=== PATIENT | female | born 1985 | race Caucasian/White ===

== ENCOUNTER 2018-11-23 04:59 | Emergency (ER) | payer BC ==
[2018-11-23] MEDS ORDERED: SODIUM CHLORIDE 0.9% 1,000 ML IV STA (05:21)
--- NOTE | 2018-11-23 05:25 | ED ---
General Adult HPI - General Chief complaint: Chest Pain Stated complaint: Chest Pain Time Seen by Provider: 11/23/18 05:08 Source: patient Mode of arrival: wheelchair - History of Present Illness Initial comments: Dictation was produced using [employer] dictation software. please excuse any grammatical, word or spelling errors. Chief Complaint: 33-year-old female presents with chief complaint of chest pain episode and paresthesias to the right hand History of Present Illness: 33-year-old female she denies any significant comorbidities presents today with chief complaint of chest pain and paresthesias to the hand. Patient reports that she awoken up from sleep with some substernal chest pain. She states that the pain was sharp. Around the time of her onset of symptoms she had tingling that went down the right upper extremity. She states that her symptoms resolved. She does note that she had some paresthesias to her entire right hand. Denies any motor weakness. She states she had a second long episode of some tightness in the left throat. Patient has ever having had symptoms like this in the past. 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 She drinks a lot of caffeine. Patient takes medication for appetite suppression. No other medications. Denies any surgeries.Family history of cardiac disease or sudden for the age of 44. Patient states that her pain symptoms resolved. Most of her symptoms resolved except for some strange sensation in her hand. She denies it as numbness. She states it just simply feels strange. The ROS documented in this emergency department record has been reviewed and confirmed by me. Those systems with pertinent positive or negative responses have been documented in the HPI. All other systems are other negative and/or noncontributory. PHYSICAL EXAM: General Impression: Alert and oriented x3, not in acute distress HEENT: Normocephalic atraumatic, extra-ocular movements intact, pupils equal and reactive to light bilaterally, mucous membranes moist. Cardiovascular: Heart regular rate and rhythm, S1&S2 audible, no murmurs, rubs or gallops Chest: Lungs clear to auscultation bilaterally, no rhonchi, no wheeze, no rales Abdomen: Bowel sounds present, abdomen soft, non-tender, non-distended, no organomegaly Musculoskeletal: Pulses present and equal in all extremities, no peripheral edema Motor: no focal deficits noted Neurological: CN II-XII grossly intact, no focal motor or sensory deficits noted Skin: Intact with no visualized rashes Psych: Normal affect and mood ED course: Female presents with atypical chest pain and peripheral neuropathy as upon arrival shows heart rate of 101, rest of vital signs within acceptable limits. EKGs benign. Her symptoms may be related to excessive caffeine intake. Laboratory evaluation obtained. CBC unremarkable. Metabolic panel is negative. Renal markers are unremarkable. Electrolytes derangement. We'll TSH. Chest x-ray is nonacute. Patient monitored at bedside with no changes seen on potline monitor. She was reevaluated at bedside and found to be in stable medical condition. She states her symptoms are much improved. Patient counseled on caffeine intake. Sightly likely that patient's symptoms are secondary to excessive caffeine use. She is advised follow-up with PCP. Consult on pro ducing her Pain congestion to reduce symptoms. Return parameters discussed. Patient clear for discharge. EKG interpretation: Ventricular rate anterior, normal sinus rhythm,. 1:30, care is 80, QTc 472. No WA prolongation, no QTC prolongation, no ST or T-wave changes noted. Overall, this EKG is unremarkable - Related Data Allergies Allergy/AdvReac Type Severity Reaction Status Date / Time No Known Allergies Allergy Verified 11/23/18 05:06 Review of Systems ROS Statement: Those systems with pertinent positive or pertinent negative responses have been documented in the HPI. ROS Other: All systems not noted in ROS Statement are negative. Past Medical History Past Medical History: No Reported History History of Any Multi-Drug Resistant Organisms: None Reported Past Surgical History: Cholecystectomy Smoking Status: Never smoker Past Alcohol Use History: None Reported, Occasional Past Drug Use History: None Reported Course Vital Signs 11/23/18 05:01 Temperature 97.4 F L Pulse Rate 101 H Respiratory 18 Rate Blood Pressure 150/88 O2 Sat by Pulse 100 Oximetry Medical Decision Making - Lab Data Result diagrams: 11/23/18 05:31 11/23/18 05:31 Lab Results 11/23/18 11/23/18 Range/Units 05:31 05:31 WBC 10.5 (3.8-10.6) k/uL RBC 4.76 (3.80-5.40) m/uL Hgb 14.7 (11.4-16.0) gm/dL Hct 44.0 (34.0-46.0) % MCV 92.4 (80.0-100.0) fL MCH 31.0 (25.0-35.0) pg MCHC 33.5 (31.0-37.0) g/dL RDW 13.0 (11.5-15.5) % Plt Count 333 (150-450) k/uL Neutrophils % 66 % Lymphocytes % 25 % Monocytes % 4 % Eosinophils % 4 % Basophils % 1 % Neutrophils # 6.9 (1.3-7.7) k/uL Lymphocytes # 2.6 (1.0-4.8) k/uL Monocytes # 0.4 (0-1.0) k/uL Eosinophils # 0.4 (0-0.7) k/uL Basophils # 0.1 (0-0.2) k/uL Sodium 139 (137-145) mmol/L Potassium 3.7 (3.5-5.1) mmol/L Chloride 104 (98-107) mmol/L Carbon Dioxide 23 (22-30) mmol/L Anion Gap 12 mmol/L BUN 10 (7-17) mg/dL Creatinine 0.77 (0.52-1.04) mg/dL Est GFR (CKD-EPI)AfAm >90 (>60 ml/min/1.73 sqM) Est GFR (CKD-EPI)NonAf >90 (>60 ml/min/1.73 sqM) Glucose 99 (74-99) mg/dL Calcium 9.6 (8.4-10.2) mg/dL Magnesium 2.1 (1.6-2.3) mg/dL Total Bilirubin 0.6 (0.2-1.3) mg/dL AST 24 (14-36) U/L ALT 45 (9-52) U/L Alkaline Phosphatase 86 (38-126) U/L Total Protein 7.4 (6.3-8.2) g/dL Albumin 4.5 (3.5-5.0) g/dL TSH 3.800 (0.465-4.680) mIU/L Disposition Clinical Impression: Paresthesia Disposition: HOME SELF-CARE Condition: Good Instructions (If sedation given, give patient instructions): Chest Pain (ED) Is patient prescribed a controlled substance at d/c from ED?: No Referrals: Herbie Matthew MD [Primary Care Provider] - 1-2 days Time of Disposition: 06:45
[2018-11-23 05:40] LABS: Basophils # (A) 0.1 k/uL (0-0.2); Basophils % (A) 1 %; Eosinophils # (A) 0.4 k/uL (0-0.7); Eosinophils % (A) 4 %; HGB 14.7 gm/dL (11.4-16.0); Lymphocytes # (A) 2.6 k/uL (1.0-4.8); Lymphocytes % (A) 25 %; MCHC 33.5 g/dL (31.0-37.0); MCV 92.4 fL (80.0-100.0); Mean Platelet Volume 6.7; Monocytes # (A) 0.4 k/uL (0-1.0); Monocytes % (A) 4 %; Neutrophils # (A) 6.9 k/uL (1.3-7.7); Neutrophils % (A) 66 %; Platelet Count 333 k/uL (150-450); RBC 4.76 m/uL (3.80-5.40); WBC 10.5 k/uL (3.8-10.6)
[2018-11-23 06:04] LABS: ALT 45 U/L (9-52); AST 24 U/L (14-36); African American GFR (CKD) >90 (>60 ml/min/1.73 sqM); Albumin 4.5 g/dL (3.5-5.0); Alkaline Phosphatase 86 U/L (38-126); Anion Gap 12 mmol/L; Blood Urea Nitrogen 10 mg/dL (7-17); Calcium 9.6 mg/dL (8.4-10.2); Carbon Dioxide 23 mmol/L (22-30); Chloride 104 mmol/L (98-107); Glucose 99 mg/dL (74-99); Magnesium 2.1 mg/dL (1.6-2.3); Potassium 3.7 mmol/L (3.5-5.1); Sodium 139 mmol/L (137-145); Total Bilirubin 0.6 mg/dL (0.2-1.3); Total Protein 7.4 g/dL (6.3-8.2)
--- NOTE | 2018-11-23 06:43 | XR ---
EXAM: XR Chest, 2 Views CLINICAL HISTORY: Chest Pain TECHNIQUE: Frontal and lateral views of the chest. COMPARISON: No relevant prior studies available. FINDINGS: Lungs: Unremarkable. No consolidation. Pleural space: Unremarkable. No pleural effusions. No pneumothorax. Heart: Unremarkable. No cardiomegaly. Mediastinum: Unremarkable. Bones/joints: Unremarkable. IMPRESSION: No acute cardiopulmonary process.
[2018-11-23 06:57] VITALS: BP 115/50; PULSE 78; RESP 17; TEMP 98.5
== END 2018-11-23 06:56 | disposition home or self-care (01) ==
LOC: EC 04:59
DX: R20.2 Paresthesia of skin (principal); R07.89 Other chest pain; G62.9 Polyneuropathy, unspecified
CPT/HCPCS: 36415; 71046; 80053; 83735; 84443; 85025; 93005; 96360; 99285